=== PATIENT | female | born 1990 | race Caucasian/White ===

== ENCOUNTER 2024-11-14 05:14 | Emergency (ER) | payer BC ==
[~2024-11-14] VITALS: Ht 172.7 cm; Wt 92.0 kg
[~2024-11-14 05:14] MED LIST: PHENERGAN25 MG/TAB PO
[2024-11-14 05:22] VITALS: BP 135/73
[2024-11-14 05:30] VITALS: BP 131/87
[2024-11-14] MEDS ORDERED: SODIUM CHLORIDE 0.9% 1,000 ML IV ONE ×2 (05:30→05:35)
[2024-11-14] MEDS ORDERED: ALBUTEROL SULFATE 2.5 MG VIAL NEB ONE (05:30)
[2024-11-14] MEDS ORDERED: IPRATROPIUM BROMIDE 0.5 MG/2.5 ML SOL IN ONE (05:30)
[2024-11-14] MEDS ORDERED: PARAGARD IU (05:33)
[2024-11-14] MEDS ORDERED: guaiFENesin-CODEINE 200-20 MG/10 ML UDC PO ONE (05:40)
[2024-11-14 06:00] VITALS: BP 116/71
[2024-11-14 06:31] VITALS: BP 123/75
[2024-11-14] MEDS ORDERED: ZITHROMAX250 MG PO (06:45)
[2024-11-14] MEDS ORDERED: DEXAMETHASON6 MG PO (06:45)
[2024-11-14] MEDS ORDERED: ALBUTEROL108 MCG/AC PO (06:49)
[2024-11-14 07:00] VITALS: BP 118/74
[2024-11-14 07:27] VITALS: BP 118/74
== END 2024-11-14 07:30 | disposition home or self-care (01) | DRG 206 ==
LOC: ED 05:14
DX: J98.8 Other specified respiratory disorders (principal); B34.9 Viral infection, unspecified; Z20.822 Contact with and (suspected) exposure to COVID-19
CPT/HCPCS: J1100